=== PATIENT | male | born 1975 | race Caucasian/White ===

== ENCOUNTER → 2021-02-21 | Outpatient (CLI) | payer MEDICARE ==
[~2021-02-21] MED LIST: FLEXERIL 10 MG10 MG PO; IBUPROFEN600 MG PO; PREDNISONE 50 M50 MG PO
== END ==
LOC: KOH-I 08:54
DX: M25.562 Pain in left knee (principal); M25.561 Pain in right knee; Z47.89 Encounter for other orthopedic aftercare; M66.0 Rupture of popliteal cyst; M67.961 Unspecified disorder of synovium and tendon, right lower leg
CPT/HCPCS: 73721